=== PATIENT | female | born 1960 | race Caucasian/White ===

== ENCOUNTER 2019-01-25 11:05 | Emergency (ER) | payer OTHER ==
[~2019-01-25] VITALS: Ht 152.4 cm; Wt 127.0 kg
[2019-01-25] MEDS ORDERED: KETOROLAC TROMETHAMINE 60 MG/2 ML VIAL IM ONE (12:30)
[2019-01-25 12:43] VITALS: BP 157/78
== END 2019-01-25 12:51 | disposition home or self-care (01) ==
LOC: ER 11:05
DX: M54.5 Low back pain (principal); M54.32 Sciatica, left side; M54.16 Radiculopathy, lumbar region
CPT/HCPCS: 99283; J1885